=== PATIENT | male | born 1945 | race Caucasian/White ===

== ENCOUNTER 2016-12-26 17:04 | Emergency (ER) | payer MEDICARE, OTHER ==
[~2016-12-26] VITALS: Ht 177.8 cm; Wt 113.2 kg
[~2016-12-26 17:04] MED LIST: ALEVE 220MG220 MG PO; COUMADIN 22.5 MG/TAB PO; COUMADIN 5MG5 MG/TAB PO; DALIRESP500 MCG PO; THEO-DUR 3300 MG/TAB PO; ZYRTEC 10MG10 MG PO
[2016-12-26 17:09] VITALS: BP 139/94; TEMP 97.9
[2016-12-26 18:06] LABS: BASO % 0.6 % (0.0-2.0); EOS # 0.3 (0.0-0.7); EOS % 6.7 % (0-4.0); GRAN % 59.6 % (42.2-75.2); HEMATOCRIT 46.1 % (42.0-52.0); HEMOGLOBIN 15.5 g/dl (13.5-18.0); LYMPH # 1.1 (1.2-3.4); MEAN CELL VOLUME 94 fl (80.0-100.0); MEAN CORPUSCULAR HEMOGLOBIN 32 pg (27.0-31.0); MEAN CORPUSCULAR HGB CONC 34 g/dl (33.0-37.0); MEAN PLATELET VOLUME 9.2 fl (7.4-10.4); MONO # 0.5 (0.1-0.6); MONO % 10.9 % (1.7-9.3); PLATELET COUNT 187 K/mm3 (130-400); RED BLOOD COUNT 4.89 M/mm3 (4.20-5.60); REDCELL DISTRIBUTION WIDTH-CV 13.6 % (11.5-14.5)
[2016-12-26 18:19] LABS: ALANINE AMINOTRANSFERASE 58 U/L (21-72); ALBUMIN 4.5 gm/dL (3.5-5.0); ALKALINE PHOSPHATASE 85 U/L (50-136); ANION GAP 12 mmol/L (7-16); BILIRUBIN,TOTAL 0.8 mg/dL (0.0-1.0); BLOOD UREA NITROGEN 10 mg/dL (9-20); CALCIUM 10.4 mg/dL (8.4-10.2); CARBON DIOXIDE 27 mmol/L (22-30); CHLORIDE 104 mmol/L (98-107); CREATININE, serum 1.06 mg/dL (0.66-1.25); GLUCOSE 118 mg/dL (74-106); SODIUM 142 mmol/L (137-145); TOTAL PROTEIN 7.7 gm/dL (6.4-8.2)
[2016-12-26 18:23] LABS: C-REACTIVE PROTEIN < 0.5 mg/dL (0.0-0.9)
[2016-12-26 18:28] LABS: B-TYPE NATRIURETIC PEPTIDE 104 pg/mL (0-125); TROPONIN-I 0.012 ng/mL (0.000-0.034)
[2016-12-26] MEDS ORDERED: PROVENTIL0.09 MG/A1 IH (20:14)
[2016-12-26] MEDS ORDERED: MEDROL 4MG DOSPA4 MG PO (20:14)
[2016-12-26 20:24] VITALS: PULSE 94
== END 2016-12-26 20:24 | disposition home or self-care (01) ==
LOC: COL.ER 17:04
PROVIDERS: Emergency Medicine
DX: R06.02 Shortness of breath (principal); J44.9 Chronic obstructive pulmonary disease, unspecified; Z86.711 Personal history of pulmonary embolism; Z79.01 Long term (current) use of anticoagulants; R42 Dizziness and giddiness; R05 Cough; R00.0 Tachycardia, unspecified
CPT/HCPCS: J7030; J7512; Q9967

== ENCOUNTER → 2017-08-20 | Outpatient (RCR) | payer MEDICARE, OTHER ==
[~2017-08-20] MED LIST changes: +MEDROL 4MG DOSPA4 MG PO; +PROVENTIL0.09 MG/A1 IH
== END | disposition home or self-care (01) ==
LOC: WSPT
DX: M48.061 Spinal stenosis, lumbar region without neurogenic claudication (principal); M43.16 Spondylolisthesis, lumbar region
CPT/HCPCS: G8978-GP; G8979-GP

== ENCOUNTER 2017-11-09 14:45 | Outpatient (RCR) | payer MEDICARE, OTHER | END 2017-11-20 | LOC: WSPT | DX: M48.061 Spinal stenosis, lumbar region without neurogenic claudication (principal); M43.16 Spondylolisthesis, lumbar region | CPT/HCPCS: G8978-GP; G8979-GP ==

== ENCOUNTER → 2018-05-26 | Outpatient (REF) | LOC: ZLAB.WCH 10:03 | DX: Z01.89 Encounter for other specified special examinations (principal) ==